=== PATIENT | male | born 1980 | race American Indian/Alaskan Native ===

== ENCOUNTER 2016-11-24 13:08 | Emergency (ER) | payer SELFPAY ==
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
--- NOTE | 2016-11-24 16:02 | XRay Report ---
Abdomen 2 views: History: Abdominal pain. Findings: No free intraperitoneal air. No bowel distention or wall thickening. No radiopaque calculus or abnormal calcification. Impression: Essentially negative abdomen.
[2016-11-24 16:31] LABS: Basophils % (Auto) 0.7 % (0.0-1.8); Eosinophils % (Auto) 1.1 % (0.0-4.3); Hematocrit 42.3 % (35.5-45.6); Hemoglobin 13.8 gm/dl (11.8-15.2); Mean Corpuscular HGB Conc 33 % (32-34); Mean Corpuscular Hemoglobin 29 pg (28-32); Mean Corpuscular Volume 90 fl (84-94); Platelet Count 181 K/mm3 (140-440); Red Blood Count 4.68 M/mm3 (3.65-5.03); Red Cell Distribution Width 13.7 % (13.2-15.2); White Blood Count 8.8 K/mm3 (4.5-11.0)
[2016-11-24 16:56] LABS: Alanine Aminotransferase 13 units/L (7-56); Albumin 4.4 g/dL (3.9-5); Albumin/Globulin Ratio 1.5 %; Alkaline Phosphatase 81 units/L (35-129); Anion Gap 17 mmol/L; Blood Urea Nitrogen 16 mg/dL (9-20); Carbon Dioxide 27 mmol/L (22-30); Chloride 101.9 mmol/L (98-107); Glucose 83 mg/dL (75-100); Lipase 135 units/L (13-60); Potassium 4.3 mmol/L (3.6-5.0); Sodium 142 mmol/L (137-145); Total Protein 7.3 g/dL (6.3-8.2)
[2016-11-24 16:57] LABS: Bilirubin,Direct < 0.2 mg/dL (0-0.2)
[2016-11-24 20:37] LABS: Bilirubin,Urine NEG (Negative); Blood,Urine NEG (Negative); Ketones,Urine 20 mg/dL (Negative); Leukocyte Esterase,Urine TR (Negative); Mucus,Urine 2+ /HPF; Nitrite,Urine NEG (Negative); Protein,Urine <15 mg/dL mg/dL (Negative); Urobilinogen,Urine < 2.0 mg/dL (<2.0)
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
[2016-11-24 22:18] VITALS: BP 145/88
== END 2016-11-24 22:18 | disposition home or self-care (01) ==
LOC: ED 13:08
DX: R10.32 Left lower quadrant pain (principal); F17.200 Nicotine dependence, unspecified, uncomplicated
CPT/HCPCS: 36415; 74020; 80048; 80074; 81001; 83690; 85025

== ENCOUNTER 2017-06-14 13:53 | Emergency (ER) | payer OTHER ==
[2017-06-14 14:31] VITALS: BP 134/84
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
== END 2017-06-14 20:04 | disposition home or self-care (01) ==
LOC: ED 13:53
DX: S39.012A Strain of muscle, fascia and tendon of lower back, initial encounter (principal); V43.52XA Car driver injured in collision with other type car in traffic accident, initial encounter; Y93.89 Activity, other specified; Y92.89 Other specified places as the place of occurrence of the external cause; Y99.8 Other external cause status
CPT/HCPCS: 99282

== ENCOUNTER 2021-05-20 14:14 | Emergency (ER) | payer SELFPAY ==
[2021-05-20 14:24] VITALS: BP 152/82
[2021-05-20] MEDS ORDERED: KETOROLAC 60 MG/2 ML INJ IM ONE (14:42)
[2021-05-20] MEDS ORDERED: dexAMETHasone 20 MG/5 ML VIAL IM ONE (14:42)
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
== END 2021-05-20 15:00 | disposition home or self-care (01) ==
LOC: ED 14:14
DX: M54.41 Lumbago with sciatica, right side (principal); F17.200 Nicotine dependence, unspecified, uncomplicated; Z98.890 Other specified postprocedural states
CPT/HCPCS: 96372; 99281; J1100; J1885

== ENCOUNTER 2021-11-15 09:35 | Emergency (ER) | payer SELFPAY ==
[2021-11-15 10:21] VITALS: BP 117/73
== END 2021-11-15 15:30 | disposition left against medical advice (07) ==
LOC: ED 09:35
DX: R20.2 Paresthesia of skin (principal); Z53.21 Procedure and treatment not carried out due to patient leaving prior to being seen by health care provider

== ENCOUNTER 2021-11-18 22:38 | Emergency (ER) | payer SELFPAY ==
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
[2021-11-19 08:29] VITALS: BP 146/80
== END 2021-11-19 08:20 | disposition home or self-care (01) ==
LOC: ED 22:38
DX: M54.31 Sciatica, right side (principal); R20.0 Anesthesia of skin; F17.200 Nicotine dependence, unspecified, uncomplicated; Z79.899 Other long term (current) drug therapy
CPT/HCPCS: 99282